=== PATIENT | female | born 1965 | race Caucasian/White ===

== ENCOUNTER 2022-06-04 16:20 | Outpatient (REF) | payer MEDICARE, MEDICAID, SELFPAY ==
--- NOTE | ~2022-06-04 | MR_ITS ---
EXAMINATION: MR LUMBAR SPINE WITHOUT CONTRAST CLINICAL INFORMATION: Lumbar radiculitis. COMPARISON: Intraoperative plain films 05/03/2010 and preoperative MRI scan 08/30/2009. TECHNIQUE: MRI of the lumbar spine was obtained using routine sequences without contrast. FINDINGS: VERTEBRAL BODIES AND PARASPINAL STRUCTURES: The study redemonstrates sequelae of multilevel instrumented posterior decompressions and fusions with hardware in L3, L4 and S1. There are bilateral pedicular screws in these vertebrae joined by vertical rods. There are interbody devices at L3-L4, L4-L5 and L5-S1. There is a mild grade 1 anterolisthesis of L5 on S1 which was demonstrated on prior imaging. There are mild retrolistheses of L1 on L2 and L2 on L3. Intervertebral disc heights are decreased at multiple levels. There are degenerative endplate contour changes with mild edematous signal at L1-L2. Vertebral body heights are maintained and no fractures are demonstrated. Overall, marrow signal is slightly heterogenous. The visualized retroperitoneal and pelvic structures are unremarkable. CONUS MEDULLARIS AND CAUDA EQUINA: Normal, terminating at the level of T12-L1. The lower thoracic spinal cord appears normal. The cauda equina nerve roots and filum terminale appear normal. SPINAL LEVELS: L1-L2: There is mild bilateral facet arthropathy. There is a diffuse disc bulge without significant mass effect on the thecal sac. There are inferior foraminal disc protrusions bilaterally, more prominent on the left. L2-L3: There is moderate to severe bilateral facet arthropathy. There is a posterior disc protrusion extending into the right neural foramen impinging on the exiting right L2 nerve root. There is mild narrowing of the right subarticular recess, but there is no central stenosis. L3-L4: There is moderate bilateral facet arthropathy. Posterior vertebral body contours are normal and there is no central stenosis. The neural foramina are patent bilaterally. L4-L5: There is moderate to severe bilateral facet arthropathy. Posterior vertebral body contours are normal and there is no central stenosis. The neural foramina are patent bilaterally. L5-S1: There are sequelae of a right-sided hemilaminectomy. Posterior vertebral body contours are normal in the central stenosis. There is a small disc osteophyte complex extending into the left neural foramen. There is no central stenosis. MR/MR lumbar spine wo con IMPRESSION: 1. There are sequelae of multilevel instrumented posterior decompressions and fusions between L3-L4 and L5-S1 as described above. 2. At L2-L3 there is facet arthropathy and there is a posterior disc protrusion extending into the right neural foramen, and impinging on the exiting right L2 nerve root. There is no central stenosis. 3. At L5-S1 there has been a right-sided hemilaminectomy. There is a small disc osteophyte complex extending into the left neural foramen. There is no central stenosis.
== END 2022-06-04 16:21 | disposition home or self-care (01) ==
LOC: HO.MRI 16:20
PROVIDERS: Visit Provider Psychiatry & Neurology Neurology
DX: M54.16 Radiculopathy, lumbar region (principal)
CPT/HCPCS: 72148